=== PATIENT | male | born 1980 | race African-American/Black ===

== ENCOUNTER 2016-11-13 23:15 | Emergency (ER) | payer SELFPAY | END 2016-11-14 01:54 | disposition home or self-care (01) | LOC: D.ER 23:15 | DX: M54.5 Low back pain (principal); F17.200 Nicotine dependence, unspecified, uncomplicated; F43.10 Post-traumatic stress disorder, unspecified; F25.9 Schizoaffective disorder, unspecified ==

== ENCOUNTER 2018-05-11 22:56 | Emergency (ER) | payer SELFPAY ==
[~2018-05-11] VITALS: Ht 172.7 cm; Wt 84.5 kg
[2018-05-11 23:07] VITALS: Ht 172.7 cm; Wt 84.5 kg
[2018-05-12] MEDS ORDERED: VOLTAREN75 MG PO (02:13)
[2018-05-12 02:23] VITALS: BP 118/71
== END 2018-05-12 02:23 | disposition home or self-care (01) ==
LOC: D.ER 22:56
DX: S93.502A Unspecified sprain of left great toe, initial encounter (principal); X58.XXXA Exposure to other specified factors, initial encounter; Y93.89 Activity, other specified; Y92.019 Unspecified place in single-family (private) house as the place of occurrence of the external cause

== ENCOUNTER 2019-05-09 14:56 | Emergency (ER) | payer OTHER ==
[2018-05-11 23:07] VITALS: BMI 28.3
[~2019-05-09 14:56] MED LIST: VOLTAREN75 MG PO
== END 2019-05-09 15:09 | disposition left against medical advice (07) ==
LOC: D.ER 14:56
DX: R05 Cough (principal)

== ENCOUNTER 2019-08-05 00:06 | Emergency (ER) | payer SELFPAY ==
[~2019-08-05] VITALS: Ht 172.7 cm; Wt 81.8 kg
[2019-08-05 00:10] VITALS: Ht 172.7 cm; Wt 81.8 kg
[2019-08-05] MEDS ORDERED: TOPAMAX50 MG PO (01:04)
== END 2019-08-05 01:15 | disposition home or self-care (01) ==
LOC: D.ER 00:06
DX: G43.909 Migraine, unspecified, not intractable, without status migrainosus (principal)

== ENCOUNTER 2020-08-24 12:29 | Emergency (ER) | payer MEDICAID ==
[~2020-08-24] VITALS: Ht 172.7 cm; Wt 81.8 kg
[~2020-08-24 12:29] MED LIST changes: +TOPAMAX50 MG PO
[2020-08-24 12:36] VITALS: Ht 172.7 cm; Wt 81.8 kg
[2020-08-24 13:16] VITALS: BP 142/92
[2020-08-24 14:32] LABS: BILIRUBIN NEGATIVE (NEGATIVE); KETONE NEGATIVE (NEGATIVE); NITRITE NEGATIVE (NEGATIVE); UROBILINOGEN NORMAL mg/dL (< 2); WHITE CELLS - URINE 3 HPF (0-1)
[2020-08-24 14:34] LABS: BACTERIA FEW HPF (NONE SEEN)
== END 2020-08-24 13:17 | disposition home or self-care (01) ==
LOC: D.ER 12:29
PROVIDERS: Family Medicine
DX: Z20.2 Contact with and (suspected) exposure to infections with a predominantly sexual mode of transmission (principal); R36.9 Urethral discharge, unspecified

== ENCOUNTER 2020-09-06 22:37 | Emergency (ER) | payer MEDICAID ==
[~2020-09-06] VITALS: Ht 172.7 cm; Wt 84.5 kg
[2020-09-06 22:58] VITALS: BP 154/90; Ht 172.7 cm; Wt 84.5 kg
[2020-09-07] MEDS ORDERED: AUGMENTIN 875-11 TAB PO (00:23)
== END 2020-09-07 00:33 | disposition home or self-care (01) ==
LOC: D.ER 22:37
DX: G44.009 Cluster headache syndrome, unspecified, not intractable (principal); G43.909 Migraine, unspecified, not intractable, without status migrainosus; J32.9 Chronic sinusitis, unspecified; Z72.0 Tobacco use

== ENCOUNTER 2020-09-26 09:23 | Emergency (ER) | payer MEDICAID ==
[2020-09-06 22:58] VITALS: BMI 28.3
[~2020-09-26 09:23] MED LIST changes: +AUGMENTIN 875-11 TAB PO
== END 2020-09-26 09:35 | disposition left against medical advice (07) ==
LOC: D.ER 09:23
DX: R10.9 Unspecified abdominal pain (principal)

== ENCOUNTER 2020-09-28 22:34 | Emergency (ER) | payer MEDICAID ==
[~2020-09-28] VITALS: Ht 172.7 cm; Wt 81.8 kg
[2020-09-28 22:40] VITALS: Ht 172.7 cm; Wt 81.8 kg
[2020-09-29] MEDS ORDERED: TOPAMAX50 MG PO (00:57)
[2020-09-29] MEDS ORDERED: PREVACID30 MG PO (00:57)
[2020-09-29 01:05] VITALS: BP 144/93
== END 2020-09-29 01:14 | disposition home or self-care (01) ==
LOC: D.ER 22:34
DX: G44.009 Cluster headache syndrome, unspecified, not intractable (principal); G43.909 Migraine, unspecified, not intractable, without status migrainosus